=== PATIENT | male | born 1935 | race Caucasian/White ===

== ENCOUNTER 2018-11-08 03:50 | Emergency (ER) | payer MEDICARE, BC, OTHER ==
[~2018-11-08] VITALS: Ht 177.8 cm; Wt 75.0 kg
[~2018-11-08 03:50] MED LIST: ALBU6.7H INH; APIX5TAB3 PO; ATOR40TA71 PO; FLUT1DIS4 INH; HYDR200T80 PO; NITR0.4T48 SL; OMEP-84 PO; ROFL500T7 PO; SOTA80TA PO; TERA2CAP4 PO; TEST1.25 TD; TRAM50TA2 PO; TRAZ-251 PO
[2018-11-08 04:28] VITALS: BP 141/87
[2018-11-08 04:31] LABS: BASOPHILS # (AUTO) 0.1 X10'3 (0-0.2); BASOPHILS % (AUTO) 0.7 % (0-1); EOSINOPHILS # (AUTO) 0.2 X10'3 (0-0.9); EOSINOPHILS % (AUTO) 1.6 % (0-6); HEMATOCRIT 40.1 % (42.0-52.0); HEMOGLOBIN 13.4 g/dl (14.0-17.9); LYMPHOCYTES # (AUTO) 2.6 X10'3 (1.1-4.8); LYMPHOCYTES % (AUTO) 27.6 % (21-51); MEAN CORPUSCULAR HEMOGLOBIN 26.8 PG (27.0-31.0); MEAN CORPUSCULAR HGB CONC 33.4 g/dL (33.0-36.5); MEAN CORPUSCULAR VOLUME 80.1 FL (78-98); MEAN PLATELET VOLUME 8.1 FL (7.4-10.4); MONOCYTES # (AUTO) 0.6 X10'3 (0-0.9); MONOCYTES % (AUTO) 6.8 % (2-12); NEUTROPHILS # (AUTO) 5.9 X10'3 (1.8-7.7); NEUTROPHILS % (AUTO) 63.3 % (42-75); PLATELET COUNT 234 X10'3 (140-440); RED BLOOD COUNT 5.01 X10'6 (4.70-6.10); WHITE BLOOD COUNT 9.4 X10'3 (4.5-11.0)
--- NOTE | 2018-11-08 04:38 | NUR ---
REPORTS THAT THEY ARE CONCERNED THE DUO NEBS (ALBUTEROL/IPRATROPIUM) MAY BE CAUSING HIM AN ALLERGIC REACTION. HE STARTED IT 2 DAYS AGO AND AFTER FIRST TREATMENT "HE KEPT FEELING SOMETHING IN HIS CHEST". PT AWOKE 3 HRS AGO REPORTING HE WAS HAVING TROUBLE BREATHING AND HIS VOICE WAS HOARSE. PT MAINTAINS HIS VOICE IS VERY HOARSE AND AGREES. SATS REMAINS 96%. PT AWAITING ER MD. DR. GONZALEZ UPDATED OF PT. PT RECEIVED BENEDRYL ORALLY AT 10 PM
[2018-11-08 04:41] LABS: ALANINE AMINOTRANSFERASE 17 U/L (12-78); ALBUMIN 3.1 G/DL (3.4-5.0); ALBUMIN/GLOBULIN RATIO 0.7 (1.1-1.5); ALKALINE PHOSPHATASE 110 IU/L (46-116); ANION GAP 5 (8-16); ASPARTATE AMINO TRANSFERASE 12 U/L (10-37); BILIRUBIN,TOTAL 0.3 MG/DL (0.1-1.0); BLOOD UREA NITROGEN 13 MG/DL (7-18); BUN/CREATININE RATIO 12.3 (5.4-32.0); CHLORIDE 103 MMOL/L (99-107); CREATININE 1.06 MG/DL (0.60-1.10); GLUCOSE 131 MG/DL (70-104); PARTIAL THROMBOPLASTIN TIME 27 SECONDS (22-32); POTASSIUM 4.1 MMOL/L (3.5-5.1); SODIUM 139 MMOL/L (135-145); TOTAL CARBON DIOXIDE 30.7 MMOL/L (24-32); TOTAL PROTEIN 7.3 G/DL (6.4-8.2); eGFR 67 ML/MIN
[2018-11-08] MEDS ORDERED: METH4TAB81 PO (05:24)
[2018-11-08] MEDS ORDERED: dexamethasone 4mg tablet PO ONE (05:25)
--- NOTE | 2018-11-08 05:27 | NUR ---
PT WITH STABLE VS. REPORTS HIS SYMPTOMS HAVE NOT IMPROVED AND HE STILL FEELS LIKE HIS THROAT IS CLOSING AND IT HURTS TO SWALLOW. DR. GONZALEZ REPORTS HIS EXAM IS NEGATIVE AND THAT LABS AND ECG WERE NOT NECESSARY. HE WILL ORDER STEROID HERE AND PROVIDE A PERSCRIPTION FOR PREDNISONE. PT TO BE DISCHARGED. MD SUGGESTED PT TAKE 40 MG OF HIS PRILOSEC IN AM AND PM TO MANAGE THE CHESTPAIN. REPORTS PT HAS APPT SOON WITH PULMOLOGIST.
--- NOTE | 2018-11-08 05:44 | NUR ---
PT GIVEN DEXAMETHASONE TABLET PRIOR TO DC. HE REPORTS INCREASED CP WITH SWALLOWING THESE PILLS.
== END 2018-11-08 06:03 | disposition home or self-care (01) ==
LOC: ER 03:51
DX: J02.9 Acute pharyngitis, unspecified (principal); I48.91 Unspecified atrial fibrillation; J44.9 Chronic obstructive pulmonary disease, unspecified; M19.90 Unspecified osteoarthritis, unspecified site; Z90.49 Acquired absence of other specified parts of digestive tract; Z88.6 Allergy status to analgesic agent; Z79.899 Other long term (current) drug therapy
CPT/HCPCS: 36415; 80053; 84484; 85025; 85610; 85730; 93005; 99284; J8540